=== PATIENT | male | born 1995 | race American Indian/Alaskan Native ===

== ENCOUNTER 2018-04-24 12:10 | Emergency (ER) | payer BC ==
[2018-04-24 12:41] VITALS: BP 135/92; PULSE 66; RESP 20; TEMP 97.8; O2SAT 100
[2018-04-24] MEDS ORDERED: Sodium Chloride 0.9% 1,000 ML IV ONE (12:47)
--- NOTE | 2018-04-24 12:47 | C.PDOC ---
History Of Present Illness NEW ONSET LLQ PAIN, CRAMPING, DIARRHEA X 1 THIS MORNING. +CHILLS. NO NV, TRAVEL , SICK CONTACTS. DENIES PMH EXAM MILD DIST NONTOXIC ABD +MINIMAL LLQ TEND SOFT NO R/G REMAINDER NEG Time Seen by Provider: 04/24/18 12:42 Chief Complaint (Nursing): Abdominal Pain History Per: Patient History/Exam Limitations: no limitations Onset/Duration Of Symptoms: Hrs Current Symptoms Are (Timing): Still Present Severity: Moderate Quality Of Discomfort: Cramping Associated Symptoms: Chills, Diarrhea. denies: Fever, Nausea, Vomiting Past Medical History Reviewed: Historical Data, Nursing Documentation, Vital Signs Vital Signs: Last Vital Signs Temp 97.8 F 04/24/18 12:34 Pulse 66 04/24/18 12:34 Resp 20 04/24/18 12:34 BP 135/92 H 04/24/18 12:34 Pulse Ox 100 04/24/18 13:19 - Medical History PMH: No Chronic Diseases Surgical History: No Surg Hx Family History: States: No Known Family Hx - Social History Hx Alcohol Use: No Hx Substance Use: Yes (Marijuana) - Immunization History Hx Tetanus Toxoid Vaccination: No Hx Influenza Vaccination: No Hx Pneumococcal Vaccination: No Review Of Systems Except As Marked, All Systems Reviewed And Found Negative. Constitutional: Positive for: Chills. Negative for: Fever Gastrointestinal: Positive for: Abdominal Pain (LLQ abdominal pain), Diarrhea. Negative for: Nausea, Vomiting Physical Exam - Physical Exam Appears: Non-toxic, Other (mild distress) Skin: Normal Color, Warm, Dry Head: Atraumatic, Normacephalic Eye(s): bilateral: Normal Inspection Respiratory: Other (NARD) Gastrointestinal/Abdominal: Soft, Tenderness (minimal LLQ tenderness), No Guarding, No Rebound Neurological/Psych: Oriented x3, Normal Speech ED Course And Treatment O2 Sat by Pulse Oximetry: 100 (RA) Pulse Ox Interpretation: Normal Progress - Re-Evaluation Re-evaluation Note: 04/24/18 13:12 PER RN, PS "SEVERE PHOBIA OF NEEDLES". UNABLE TO TOLERATIVE IV PLACEMENT OR BLOOD DRAW. PT REFUSING LAB OR IV. NO S/S ACUTE ABD. PO MEDS, DC - Data Reviewed Data Reviewed: Lab, Old records Medical Decision Making Medical Decision Making: Plan: --Labs --Bentyl IM --Lomitol PO --IV Fluids Disposition Counseled Patient/Family Regarding: Diagnosis, Need For Followup, Rx Given - Disposition Referrals: [facility] [Outside] [facility] [Outside] Disposition: HOME/ ROUTINE Disposition Time: 13:14 Condition: IMPROVED Additional Instructions: You have been offered blood testing and possible further radiologic studies for your symptoms but have refused. Follow up with your PMD, return if worsening symptoms. Prescriptions: Atropine/Diphenoxylate [Lonox 0.025 MG-2.5 MG] 1 tab PO TID PRN #12 tab PRN Reason: Diarrhea Dicyclomine [Bentyl] 20 mg PO TID PRN #12 tab PRN Reason: Pain Instructions: Viral Gastroenteritis, Adult (DC) Forms: [employer] (Luxembourger) - Clinical Impression Clinical Impression: Abdominal colic, Diarrhea - Scribe Statement The provider has reviewed the documentation as recorded by the Carolin Pham Provider Attestation: All medical record entries made by the Chaparritaibbar were at my direction and personally dictated by me. I have reviewed the chart and agree that the record accurately reflects my personal performance of the history, physical exam, medical decision making, and the department course for this patient. I have also personally directed, reviewed, and agree with the discharge instructions and disposition.
[2018-04-24] MEDS ORDERED: Atropine-Diphenoxylate 0.025-2.5 mg Tab PO STA (12:49)
[2018-04-24] MEDS ORDERED: Atropine-Diphenoxylate 0.025-2.5 mg Tab ONE (13:27)
== END 2018-04-24 13:34 | disposition home or self-care (01) ==
LOC: C.ER 12:10
DX: R10.84 Generalized abdominal pain (principal); R19.7 Diarrhea, unspecified

== ENCOUNTER 2018-10-08 07:14 | Emergency (ER) | payer BC, OTHER ==
[2018-10-08 07:30] VITALS: O2SAT 100
--- NOTE | 2018-10-08 08:09 | C.PDOC ---
History Of Present Illness WORSENING R LOWER GUM PAIN, SWELL SINCE YEST. PS HAS KNOWN CHIPPED TOOTH R LOWER JAW, NOTICED NEW ONSET PAIN AND SWELL BASE OF THAT TOOTH. NO RECENT TRAUMA. S/P H2O2 NOW W NEW "HEAD" ON SWELLING. NO DC, FEVER. EXAM NAD NONTOXIC HEENT NO FACIAL SWELL; +OLD CHIPPED R 1 LOWER MOLAR W MIN LOCAL TEND. +WHITE DISCOLORATION GUM LINE BASE OF TOOTH, NONFLUCTUANT MIN LOCAL SWELL AND TEND. NO DC. REMAINDER NEG MDM NO INDICATION FOR I&D. PT ADVISED WARM SALT WATER GARGLES 2-3X DAILY, STOP SMOKING, RX ABX AND MOTRIN, FU DENTIST SCHEDULED. Time Seen by Provider: 10/08/18 07:42 Chief Complaint (Nursing): Dental Pain History Per: Patient History/Exam Limitations: no limitations Onset/Duration Of Symptoms: Days Current Symptoms Are (Timing): Still Present Severity: Moderate Past Medical History Reviewed: Historical Data, Nursing Documentation, Vital Signs Vital Signs: Last Vital Signs Temp 97.7 F 10/08/18 07:27 Pulse 68 10/08/18 07:27 Resp 16 10/08/18 07:27 BP 136/93 H 10/08/18 07:27 Pulse Ox 100 10/08/18 07:27 - Medical History PMH: No Chronic Diseases Surgical History: No Surg Hx Family History: States: No Known Family Hx - Social History Hx Alcohol Use: No Hx Substance Use: Yes (Marijuana) - Immunization History Hx Tetanus Toxoid Vaccination: No Hx Influenza Vaccination: No Hx Pneumococcal Vaccination: No Review Of Systems Except As Marked, All Systems Reviewed And Found Negative. Constitutional: Negative for: Fever, Chills ENT: Positive for: Mouth Pain, Mouth Swelling Physical Exam - Physical Exam Appears: Non-toxic, No Acute Distress Skin: Normal Color, Warm, Dry Head: Atraumatic, Normacephalic, No Swelling Eye(s): bilateral: Normal Inspection Teeth: Other (old chipped right 1st lower molar with minimal local tenderness) Gingiva: Other (white discoloration to gum line base of right 1st lower molar, minimal local swelling and tenderness, no fluctuance, no discharge) Cardiovascular: Rhythm Regular Respiratory: Other (NARD) Neurological/Psych: Oriented x3, Normal Speech ED Course And Treatment O2 Sat by Pulse Oximetry: 100 (RA) Pulse Ox Interpretation: Normal Medical Decision Making Medical Decision Making: NO INDICATION FOR I&D. PT ADVISED WARM SALT WATER GARGLES 2-3X DAILY, STOP SMOKING, RX ABX AND MOTRIN, FU DENTIST SCHEDULED. Disposition Counseled Patient/Family Regarding: Diagnosis, Need For Followup, Rx Given, Smoking Cessation - Disposition Referrals: YOUR,DENTIST [Other] Disposition: HOME/ ROUTINE Disposition Time: 08:00 Condition: GOOD Prescriptions: Amoxicillin 875 mg PO BID #20 tab Ibuprofen [Motrin] 600 mg PO Q6 #30 tab Instructions: Tooth Abscess (DC) Forms: [email or web address] (Turkish), Work Excuse - Clinical Impression Clinical Impression: Dentalgia, Swelling of gingiva, Periapical abscess - Scribe Statement The provider has reviewed the documentation as recorded by the Chaparritaibbar Pham Provider Attestation: All medical record entries made by the Chaparritaibe were at my direction and personally dictated by me. I have reviewed the chart and agree that the record accurately reflects my personal performance of the history, physical exam, medical decision making, and the department course for this patient. I have also personally directed, reviewed, and agree with the discharge instructions and disposition.
[2018-10-08 08:22] VITALS: BP 141/69; PULSE 57; RESP 20; TEMP 97.6
== END 2018-10-08 08:21 | disposition home or self-care (01) ==
LOC: EDBD → C.ER 07:14
DX: K04.7 Periapical abscess without sinus (principal); K06.9 Disorder of gingiva and edentulous alveolar ridge, unspecified; K08.89 Other specified disorders of teeth and supporting structures